=== PATIENT | female | born 1950 | race Two or more races ===

== ENCOUNTER 2021-10-21 22:26 | Emergency (ER) | payer OTHER ==
[~2021-10-21] VITALS: Ht 167.6 cm; Wt 77.1 kg
[2021-10-21] MEDS ORDERED: CRESTOR10 MG (22:34)
== END 2021-10-21 23:24 | disposition home or self-care (01) ==
LOC: ER 22:26
DX: S01.122A Laceration with foreign body of left eyelid and periocular area, initial encounter (principal); W18.09XA Striking against other object with subsequent fall, initial encounter; Y93.89 Activity, other specified; Y92.480 Sidewalk as the place of occurrence of the external cause; Y99.8 Other external cause status